=== PATIENT | female | born 1965 | race Two or more races ===

== ENCOUNTER 2021-10-19 19:52 | Emergency (ER) | payer MEDICAID, OTHER ==
[~2021-10-19] VITALS: Ht 165.1 cm; Wt 82.6 kg
--- NOTE | 2021-10-19 20:34 | NUR ---
AFTER BEING TRIAGED, PATIENT WAS PLACED BACK TO WAITING ROOM DUE TO NO BEDS AVAILABLE IN THE ER.
--- NOTE | 2021-10-19 21:22 | NUR ---
PATIENT WAS CALLED TO BE PLACED IN ROOM BUT WAS NOT PRESENT IN THE WAITING ROOM OR OUTSIDE OF ER.
--- NOTE | 2021-10-19 21:38 | NUR ---
PATIENT WAS CALLED TO BE PLACED IN HALLWAY BUT WAS NOT PRESENT. PATIENT WAS NOT SEEN BY ERMD OR TRIAGED
== END 2021-10-19 20:30 | disposition left against medical advice (07) ==
LOC: ER 20:00
DX: Z53.21 Procedure and treatment not carried out due to patient leaving prior to being seen by health care provider (principal)